=== PATIENT | female | born 1960 | race Caucasian/White ===

== ENCOUNTER 2018-11-02 10:48 | Day surgery (SDC) | payer OTHER ==
[~2018-11-02 10:48] MED LIST: NACL 0.9% 1000 ML 1,000 ML IV SCH
[2018-11-02] MEDS ORDERED: XYLOCAINE MPF 2% ONE (11:30)
[2018-11-02] MEDS ORDERED: DIPRIVAN 10 MG/ML IV ONE ×2 (11:36)
--- NOTE | 2018-11-02 12:05 | Short Stay Summary ---
Short Stay Documentation Date of service: 11/02/18 Narrative H&P: The patient presents for her first screening colonoscopy. Average risk profile. - History Past Medical History: No medical history Past Surgical History: hysterectomy Social history: no significant social history, no smoking, no alcohol abuse - Allergies and Medications Current Medications: Allergies No Known Allergies Allergy (Verified 11/02/18 10:57) Home Medications Medication Instructions Recorded Confirmed Last Taken Type Folic Acid [Folvite] 1 mg PO QDAY 11/01/18 11/02/18 10/31/18 History Multivit-Min/Iron/Folic/Lutein 1 each PO DAILY 11/01/18 11/02/18 10/31/18 History [Centrum Silver Women Tablet] Como-3/Dha/Epa/Fish Oil [Como 3 1 each PO DAILY 11/01/18 11/02/18 10/31/18 History 500 Softgel] Active Medications Sodium Chloride (Nacl 0.9% 1000 Ml) 1,000 mls @ 50 mls/hr IV DIRECT KEI Last Admin: 11/02/18 11:27 Dose: 50 mls/hr Documented by: - Physical exam General appearance: no acute distress Integumentary: no rash, no growths, no abnormal pigmentation HEENT: Atraumatic, PERRLA, EOMI, Mucous membr. moist/pink Lungs: Clear to auscultation, Normal air movement Breasts: deferred Heart: Regular rate, Normal S1, Normal S2, No murmurs Gastrointestinal: normoactive bowel sounds, no tenderness, no distended, no masses, no guarding, no organomegaly Female Genitourinary: deferred Rectal Exam: normal exam-external/orifice, normal rectal tone, no mass Extremities: no ischemia, pulses intact, pulses symmetrical, No edema, normal temperature, normal color, Full ROM Neurological: Normal gait, Normal speech, Strength at 5/5 X4 ext, Normal tone, Sensation intact, Cranial nerves 3-12 NL - Brief post op/procedure progress note Date of procedure: 11/02/18 Findings: see dictated report Estimated blood loss: none Pathology: list (1 cm friable periappendiceal polyp) Specimen disposition: to lab - Disposition Condition at discharge: Good Disposition: DC-01 TO HOME OR SELFCARE - Discharge Diagnoses (1) Colon cancer screening Status: Acute Short Stay Discharge Plan Activity: other (No driving for 24 horus. Avoid NSAIDs for 7 days) Weight Bearing Status: Weight Bear as Tolerated Follow up with: WILLAM PARKER MD [Primary Care Provider] - 7 Days
--- NOTE | 2018-11-02 12:08 | Operative Report ---
Operative Report Operative Report: Date of procedure: 11/02/2018 Preprocedure diagnosis: Colon cancer screening. No prior studies. Average ris k. Post procedure diagnosis: 1 cm friable periappendiceal polyp. Procedure: Colonoscopy to the cecum with hot snare polypectomy. Endoscopist: Dr. Pride Anesthesia: Monitored anesthesia care per anesthesia department Estimated blood loss: 0 Medications: Monitored anesthesia care. See separate report by anesthesia for details. After careful discussion of the nature and purpose of the procedure as well as details of the technique risks benefits and alternatives the patient gave consent. Please see recent history and physical from the office. The patient was placed in the left lateral decubitus position and medicated per anesthesia. A rectal exam was performed sphincter tone was normal there were no masses palpable. The Ludesin 570 scope was passed transanally and advanced under continuous direct vision without difficulty to the cecum. The colon was well prepared. The cecum revealed a 1 cm friable polyp at the appendiceal orifice. The polyp was removed completely with the hot snare and retrieved by suction. There was no bleeding post polypectomy. The ascending colon was normal and on forward and retroflexed views. The transverse colon, descending colon, and sigmoid colon were normal. The rectum was normal on forward and retroflexed views. The procedure was well-tolerated overall and the patient was observed in recovery. Conclusions: 1 cm friable periappendiceal polyp. Plan: Await pathology. Follow up in 3 years, if there is no evidence of malignancy. The patient and family will call me in approximately 10 days to discuss the pathology report and follow-up. Signed electronically: Brandon Pride M.D.
[2018-11-02 12:35] VITALS: BP 104/54
== END 2018-11-02 10:49 | disposition home or self-care (01) ==
LOC: GIO 10:48
PROVIDERS: ATTEND Internal Medicine Gastroenterology
DX: Z12.11 Encounter for screening for malignant neoplasm of colon (principal); D12.1 Benign neoplasm of appendix; Z79.899 Other long term (current) drug therapy; Z90.710 Acquired absence of both cervix and uterus
CPT/HCPCS: 45385; 88305; J2704; J7030; 88307